=== PATIENT | female | born 1965 | race Caucasian/White ===

== ENCOUNTER → 2017-06-19 | Outpatient (CLI) | payer SELFPAY | LOC: MC.RAD 07:36 | DX: Z12.31 Encounter for screening mammogram for malignant neoplasm of breast (principal) ==

== ENCOUNTER → 2018-07-22 | Outpatient (CLI) | payer SELFPAY | LOC: MC.RAD 09:20 | DX: Z12.31 Encounter for screening mammogram for malignant neoplasm of breast (principal) ==

== ENCOUNTER → 2019-07-15 | Outpatient (CLI) | payer OTHER | LOC: COL.RAD 15:39 | DX: K57.32 Diverticulitis of large intestine without perforation or abscess without bleeding (principal) | CPT/HCPCS: Q9967 ==

== ENCOUNTER 2019-09-30 09:13 | Day surgery (SDC) | payer SELFPAY ==
[~2019-09-30] VITALS: Ht 154.9 cm; Wt 70.5 kg
[2019-09-30 10:13] VITALS: BP 129/63; PULSE 105; TEMP 98
[2019-09-30] MEDS ORDERED: SYNTHROID0.1 MG/TAB PO (10:17)
[2019-09-30 11:10] VITALS: BP 115/66; PULSE 106; TEMP 97.5
--- NOTE | 2019-09-30 11:10 | NUR ---
Pt to [facility] via cart from ENDO. Pt drowsy, but awake. Pt ambulates to recliner with stand by assistance x2. Warm blanket given. VSS. Pt c/o nausea. Zofran given intraoperative. Lights dimmed and encouraged pt to rest. Ice chips and crackers placed at bedside for when pt is ready for them. in room. Call light within reach.
[2019-09-30 11:25] VITALS: BP 115/66; PULSE 105
--- NOTE | 2019-09-30 11:25 | NUR ---
Pt sleeping. Respirations even and unlabored. Will continue to monitor.
[2019-09-30 11:40] VITALS: BP 103/52; PULSE 80
--- NOTE | 2019-09-30 11:40 | NUR ---
Pt continues to rest. Pt reports the nausea is "better." Tolerating ice chips and crackers. Will continue to monitor. Call light within reach.
[2019-09-30 11:55] VITALS: BP 101/47; PULSE 80
--- NOTE | 2019-09-30 11:55 | NUR ---
lt into consult with pt and . second dose of zofran ordered for pt. Zofran 4mg IVSP given. Pt reports she is feeling better and nausea is almost gone. Will continue to monitor. Call light within reach.
[2019-09-30 12:25] VITALS: BP 98/61; PULSE 82
--- NOTE | 2019-09-30 12:25 | NUR ---
Discharge instructions reviewed. Pt voices understanding. IV site discontinued with all parts intact. Pt up to dress. Call light within reach.
--- NOTE | 2019-09-30 12:35 | NUR ---
Pt escorted to private car via wheel chair. Pt accompanied home by her .
== END 2019-09-30 12:35 | disposition home or self-care (01) ==
LOC: SDCO 09:13
DX: Z12.11 Encounter for screening for malignant neoplasm of colon (principal); K57.30 Diverticulosis of large intestine without perforation or abscess without bleeding; E03.9 Hypothyroidism, unspecified
CPT/HCPCS: J2250; J2405; J3010; J7030

== ENCOUNTER → 2021-01-31 | Outpatient (CLI) | payer SELFPAY ==
[~2021-01-31] MED LIST: SYNTHROID0.1 MG/TAB PO
== END ==
LOC: COL.RAD 10:00
DX: M25.552 Pain in left hip (principal)
CPT/HCPCS: J3301; Q9967